=== PATIENT | female | born 1950 | race Caucasian/White ===

== ENCOUNTER → 2019-05-14 | Day surgery (SDC) | payer BC ==
[~2019-05-14] MED LIST: ACETAMINOPHEN 325 MG TABLET PO PRN; ALBUTEROL SULFATE 2.5 MG/3 ML NEBU. NEB PRN; ALPR0.5T PO; APIX5TAB3 PO; ASPI325T8 PO; ASPI81TA50 PO; ATROPINE 0.5 MG/5 ML DISP.SYRIN. IV PRN; CARV25TA2 PO; DOCU-109 PO; EZET10TA20 PO; FLUT9.9S NS; HYDR-2145 PO; HYDR25CA75 PO; IV RINGERS SOLUTION,LACTATED 1,000 ML IV SCH; LISI-338 PO; LISI1TAB20 PO; PANT20TA58 PO; PANT40TA3 PO; PHEN-444 PO; PHENOL ORAL SPRAY 177ML BOTTLE. MM PRN; POTA20TA4 PO; PROPOFOL 20 ML IV ONE; [UNRECOGNIZED DRUG - OTHER]; diphenhydrAMINE 50 MG/ML VIAL IV PRN
[2019-05-14 13:10] VITALS: BP 147/78
== END ==
LOC: SURG 10:49
PROVIDERS: ATTEND Internal Medicine Gastroenterology
DX: R13.10 Dysphagia, unspecified (principal); K22.2 Esophageal obstruction; K21.9 Gastro-esophageal reflux disease without esophagitis; K44.9 Diaphragmatic hernia without obstruction or gangrene; I48.91 Unspecified atrial fibrillation; F41.9 Anxiety disorder, unspecified; I10 Essential (primary) hypertension; Z85.048 Personal history of other malignant neoplasm of rectum, rectosigmoid junction, and anus
CPT/HCPCS: 43239; J2704; J7120

== ENCOUNTER 2020-03-19 11:27 | Emergency (ER) | payer BC ==
[~2020-03-19] VITALS: Ht 170.2 cm; Wt 94.0 kg
[~2020-03-19 11:27] MED LIST changes: -ACETAMINOPHEN 325 MG TABLET PO PRN; -ALBUTEROL SULFATE 2.5 MG/3 ML NEBU. NEB PRN; -ATROPINE 0.5 MG/5 ML DISP.SYRIN. IV PRN; -IV RINGERS SOLUTION,LACTATED 1,000 ML IV SCH; -PHENOL ORAL SPRAY 177ML BOTTLE. MM PRN; -PROPOFOL 20 ML IV ONE; -diphenhydrAMINE 50 MG/ML VIAL IV PRN
[2020-03-19] MEDS ORDERED: IV NORMAL SALINE 1,000ML 1,000 ML IV ONE (11:45)
[2020-03-19] MEDS ORDERED: dilTIAZem 25 MG/5 ML VIAL IVP ONE (11:45)
--- NOTE | 2020-03-19 11:45 | PHYS DOC ---
General Adult EDM: Chief Complaint: DIZZY/LIGHT HEADED HPI: HPI: History obtained from patient. Patient is a 69-year-old female with a history of atrial fibrillation, colon cancer who presents with multiple complaints. Patient states she has felt generally fatigued over the past 2 weeks. She notes that she began developing some vertiginous symptoms early this morning. She states that she was supposed to see her clinical manager home care today but informed her clinical manager home care that she would require a wheelchair to get into the office. Upon hearing this the clinical manager home care instructed her to report to the emergency department. She states that she checked her blood pressure at home this morning and noted to be approximately 80/60 therefore she did not take any of her home medications including her carvedilol or Eliquis. She is also noted black tarry stools over the past several days. Notes a history of colon cancer. Denies any syncope. Denies cough or fever. Does note some shortness of breath. Does endorse orthopnea. Denies chest pain or heaviness. Denies back pain. Does note some mild abdominal discomfort diffuse in nature in the mornings over the past week or 2. States that she has been eating less than normal. Denies known exposure to coronavirus. No other complaints. Review of Systems: Review of Systems: Constitutional: Positive for fatigue Eyes: Denies change in visual acuity HENT: Denies nasal congestion or sore throat Respiratory: Positive for shortness of breath Cardiovascular: Denies chest pain or edema GI: D positive for abdominal pain and melena : Denies dysuria Musculoskeletal: Denies back pain or joint pain Integument: Denies rash Neurologic: Denies headache, focal weakness or sensory changes Endocrine: Denies polyuria or polydipsia Lymphatic: Denies swollen glands Psychiatric: Denies depression or anxiety Allergies: Allergies: Allergies Coded Allergies Type Severity Reaction Last Updated Verified No Known Drug Allergies 02/03/15 No Physical Exam: PE: Constitutional: Well developed, well nourished, no acute distress, non-toxic appearance. [] HENT: Normocephalic, atraumatic, bilateral external ears normal, oropharynx moist, no oral exudates, nose normal. [] Eyes: PERRLA, EOMI, conjunctiva normal, no discharge. [] Neck: Normal range of motion, no tenderness, supple, no stridor. [] Cardiovascular: Tachycardic, irregular. No murmurs rubs or gallops noted. Lungs & Thorax: Bilateral breath sounds clear to auscultation [] Abdomen: soft, no tenderness, no masses, no pulsatile masses. [] : Grossly positive for melanotic stool. Skin: Warm, dry, no erythema, no rash. [] Back: No tenderness, no CVA tenderness. [] Extremities: No tenderness, no cyanosis, no clubbing, ROM intact, no edema. [] Neurologic: Alert and oriented X 3, normal motor function, normal sensory function, no focal deficits noted. [] Psychologic: Affect normal, judgement normal, mood normal. [] EKG: EKG: EKG consistent with atrial fibrillation with rapid ventricular response. Ventricular rate of [address] [place] [address] depression noted in the lateral precordial leads. No ST elevation appreciated. [] Radiology/Procedures: Radiology/Procedures: [address] [address] IMAGING REPORT Signed PATIENT: CALLIE BLAKE ACCOUNT: [id number] : 1950 LOCATION: ER AGE: 69 SEX: F EXAM STATUS: REG ER ORD. PHYSICIAN: MORE LACEY DO REASON: abdominal pain, melena. hx colon CA PROCEDURE: CT ABDOMEN PELVIS WO CONTRAST Examination: CT ABDOMEN+PELVIS WO History: abdominal pain, melena. hx colon CA Comparison/Correlation: 02/03/2015 CT abdomen and pelvis with contrast Findings: Axial images of the abdomen and pelvis were obtained following IV contrast. Sagittal and coronal reformatted images were provided. Visualized lung bases are clear. Marked fatty infiltration of the liver diffusely is present. Nodular contour of the liver compatible with cirrhosis or other fibrotic process is present. Spleen is unremarkable. Pancreas is normal. Adrenal glands are normal. Kidneys unremarkable. Retroaortic left renal vein noted. High density within the gallbladder probably representing sludge noted. No extraluminal gas. Borderline distended upper to mid abdominal small bowel loops. No definite bowel obstruction. The appendix is normal. Significant submucosal fat throughout the colon is nonspecific and may relate to previous inflammatory process. Urinary bladder is unremarkable. Marked calcific involvement of the infrarenal abdominal aorta is evident with diffuse small diameter. No aneurysm. No enlarged abdominal or pelvic lymph nodes. Multilevel disc space narrowing of the thoracic and lumbar spine is present. Concentric disc bulge throughout the lumbar spine from L2 to L5 is present. Impression: Marked fatty infiltration of the liver. Hepatic cirrhosis or a fibrotic process. No acute inflammatory process identified. Borderline distention of upper abdominal small bowel loops which may represent focal ileus. No conclusive findings for obstruction. Consider continued follow- up if obstruction is persistent concern. Diffuse calcific involvement and narrowing of the infrarenal abdominal aorta. Electronically signed by: Zacarias Hay MD (03/19/2020 1:27 PM) [id number] DICTATED AND SIGNED BY: ZACARIAS HAY MD DATE: 03/19/20 7970 CC: GINA FALLON MD; MORE LACEY DO ~MTH0 0 [] Heart Score: Risk Factors: Risk Factors: DM, Current or recent (<one month) smoker, HTN, HLP, family history of CAD, obesity. Risk Scores: Score 0 - 3: 2.5% MACE over next 6 weeks - Discharge Home Score 4 - 6: 20.3% MACE over next 6 weeks - Admit for Clinical Observation Score 7 - 10: 72.7% MACE over next 6 weeks - Early Invasive Strategies Course & Med Decision Making: Course & Med Decision Making Pertinent Labs and Imaging studies reviewed. (See chart for details) [] Patient is a 69-year-old female who presents with multiple complaints. Vital signs notable for tachycardia. Atrial fibrillation with rapid ventricular response present. She was given a one-time dose of 10 mg of IV Cardizem. This did improve her heart rate significantly. No infusion was initiated. Rectal exam grossly positive for melanotic stool. Labs are notable for hypokalemia and hypomagnesia. She also has slight hyperbilirubinemia with transaminitis. Likely due to her fatty liver. No signs of acute infectious etiology. CT imaging does reveal some findings concerning for potential ileus. Low suspicion for small bowel obstruction given she is currently having bowel movements. Low suspicion for mesenteric ischemia as the patient does not appear uncomfortable. Patient did have her potassium in the serum replacement initiated the emergency department. Fluids administered. Given patient's melanotic stool while taking blood thinner she may require GI evaluation. Given this she will be transferred to [facility] where GI specialty services are available. She has remained hemodynamically stable in the emergency department. Jaymie Disclaimer: Dragon Disclaimer: This electronic medical record was generated, in whole or in part, using a voice recognition dictation system. Departure Departure: Impression: Primary Impression: Atrial fibrillation with rapid ventricular response Additional Impressions: Hypomagnesemia Hypokalemia Transaminitis Hyperbilirubinemia Melena Disposition: 02 DC/TRF OTHER SHORT TERM HOS Condition: STABLE Referrals: GINA FALLON MD (PCP) Critical Care Time The patient had a high probability of sudden, clinically significant deterioration, which required the highest level of physician preparedness to intervene urgently. I managed life or organ supporting interventions that required frequent re-assessment throughout their stay in the emergency depar tment. The total critical care time spent managing their case, separate from other billable procedures, was 20 minutes. MORE LACEY DO Mar 19, 2020 11:45
[2020-03-19] MEDS ORDERED: dilTIAZem VIAL 125 MG in IV NORMAL SALINE 100ML 100 ML IV PRN (12:00)
[2020-03-19] MEDS ORDERED: IOHEXOL 300 MG/ML 75 ML VIAL. IV ONE (12:00)
--- NOTE | 2020-03-19 12:02 | RAD ---
Examination: XR CHEST 1V History: Reason: SOB / Spl. Instructions: / History: Comparison/Correlation: 06/19/2015 Findings: Portable frontal view of the chest was obtained. Heart size normal. Pulmonary vasculature is unremarkable. No pneumothorax. No definite infiltrate or effusion. Bony structures unremarkable. Impression: No suspicious process. Electronically signed by: Zacarias Farrell MD (03/19/2020 12:00 PM) [id number]
[2020-03-19 12:15] LABS: BASO # 0.1 x10^3/uL (0.0-0.2); BASO % 1 % (0-3); EOS % 1 % (0-3); HEMATOCRIT 34.1 % (36.0-47.0); HEMOGLOBIN 11.3 g/dL (12.0-15.5); LYMPH # 0.5 x10^3/uL (1.0-4.8); LYMPH % 7 % (24-48); MEAN CORPUSCULAR HEMOGLOBIN 35 pg (25-35); MEAN CORPUSCULAR HGB CONC 33 g/dL (31-37); MEAN CORPUSCULAR VOLUME 107 fL (79-100); MONO # 0.9 x10^3/uL (0.0-1.1); MONO % 12 % (0-9); NEUT % 80 % (31-73); PLATELET COUNT 146 x10^3/uL (140-400); RED BLOOD COUNT 3.19 x10^6/uL (3.50-5.40); RED CELL DISTRIBUTION WIDTH 14.1 % (11.5-14.5); WHITE BLOOD COUNT 7.4 x10^3/uL (4.0-11.0)
[2020-03-19 12:22] LABS: FECAL OB PT POSITIVE (NEG)
[2020-03-19 12:27] LABS: ALBUMIN 3.1 g/dL (3.4-5.0); ALBUMIN/GLOBULIN RATIO 0.8 (1.0-1.7); CALCIUM 7.8 mg/dL (8.5-10.1); CREATININE 1.4 mg/dL (0.6-1.0); GFR 37.4; TOTAL BILIRUBIN 3.1 mg/dL (0.2-1.0); TOTAL PROTEIN 6.8 g/dL (6.4-8.2)
[2020-03-19 12:29] LABS: POTASSIUM 2.5 mmol/L (3.5-5.1)
[2020-03-19] MEDS ORDERED: MAGNESIUM SULFATE 2GM 50 ML IV ONE (12:45)
[2020-03-19] MEDS ORDERED: POTASSIUM CHLORIDE 10MEQ 100 ML IV SCH (12:45)
[2020-03-19 12:49] LABS: BACTERIA,URINE MANY /HPF (0-FEW); BILIRUBIN,URINE LARGE (NEG); CLARITY,URINE CLOUDY; COLOR,URINE AMBER; GLUCOSE,URINE NEG (NEG); NITRITE,URINE POS (NEG); SQUAMOUS EPITHELIAL CELL,UR MOD /LPF
--- NOTE | 2020-03-19 13:30 | RAD ---
Examination: CT ABDOMEN+PELVIS WO History: abdominal pain, melena. hx colon CA Comparison/Correlation: 02/03/2015 CT abdomen and pelvis with contrast Findings: Axial images of the abdomen and pelvis were obtained following IV contrast. Sagittal and co nir reformatted images were provided. Visualized lung bases are clear. Marked fatty infiltration of the liver diffusely is present. Nodular contour of the liver compatible with cirrhosis or other fibrotic process is present. Spleen is unrem arkable. Pancreas is normal. Adrenal glands are normal. Kidneys unremarkable. Retroaortic left renal vein noted. High density within the gallbladder probably representing sludge noted. No extraluminal g as. Borderline distended upper to mid abdominal small bowel loops. No definite bowel obstruction. The mauro endix is normal. Significant submucosal fat throughout the colon is nonspecific and may relate to pre vious inflammatory process. Urinary bladder is unremarkable. Marked calcific involvement of the infrarenal abdominal aorta is evident with diffuse small diameter. No aneurysm. No enlarged abdominal or pelvic lymph nodes. Multilevel disc space narrowing of the thoracic and lumbar spine is present. Concentric disc bulge th roughout the lumbar spine from L2 to L5 is present. Impression: Marked fatty infiltration of the liver. Hepatic cirrhosis or a fibrotic process. No acute inflammatory process identified. Borderline distention of upper abdominal small bowel loops which may represent focal ileus. No conclu sive findings for obstruction. Consider continued follow-up if obstruction is persistent concern. Diffuse calcific involvement and narrowing of the infrarenal abdominal aorta. Electronically signed by: Zacarias Farrell MD (03/19/2020 1:27 PM) [id number]
--- NOTE | 2020-03-19 14:31 | EKG ---
[address] [address] Test Date: 2020-03-19 Test Time: 11:33:23 Pat Name: CALLIE BLAKE Department: Room: Gender: F Marker Hand: : 1950 Requested By: MORE LACEY Order Number: [id number] Reading MD: Measurements Intervals [place] Rate: 135 P: [place]: QRS: 20 QRSD: 102 T: 267 QT: 322 QTc: 488 Interpretive Statements IRREGULAR RHYTHM, NO P-WAVE FOUND ST & T ABNORMALITY, CONSIDER ANTERIOR ISCHEMIA OR LEFT VENTRICULAR STRAIN LATERAL ISCHEMIA OR LEFT VENTRICULAR STRAIN INFEROLATERAL ISCHEMIA OR LEFT VENTRICULAR STRAIN ABNORMAL ECG RI6.02 No previous ECG available for comparison
[2020-03-19 15:21] VITALS: BP 105/59
--- NOTE | 2020-03-23 11:32 | NUR ---
IP: notified IP at [facility] of COVID result.
== END 2020-03-19 17:31 | disposition short-term general hospital (02) ==
LOC: ER 11:27
DX: I48.20 Chronic atrial fibrillation, unspecified (principal); Z20.828 Contact with and (suspected) exposure to other viral communicable diseases; R06.02 Shortness of breath; R10.9 Unspecified abdominal pain; E83.42 Hypomagnesemia; E80.6 Other disorders of bilirubin metabolism; E87.6 Hypokalemia; R74.01 Elevation of levels of liver transaminase levels; K92.1 Melena; Z85.9 Personal history of malignant neoplasm, unspecified
CPT/HCPCS: 36415; 71045; 74176; 80053; 81001; 82274; 83735; 83880; 84484; 85025; 85610; 86850; 86900; 86901; 87086; 93005; 96361; 96365; 96366; 96368; 96375; 99285; J3475; J3480; J3490; J7030; U0003

== ENCOUNTER 2020-09-19 19:55 | Emergency (ER) | payer BC ==
[~2020-09-19] VITALS: Ht 170.2 cm; Wt 94.0 kg
[~2020-09-19 19:55] MED LIST changes: -LISI-338 PO; +LISI-517 PO
--- NOTE | 2020-09-19 21:24 | PHYS DOC ---
Past History Past Medical History: A-Fib, Alcoholism, Hypertension, UTI Past Surgical History: No Surgical History Alcohol Use: Heavy General Adult EDM: Chief Complaint: GI PROBLEM HPI: HPI: "...I ve been having black stools for past couple days.. and I did vomit up some coffee ground stuff.. I am on Aspirin and Eliquis for my A. fib... Patient is a 69 year old female who presents with above hx and complaints of GI bleeding which appears to be upper by hx. patient has been having tarry stools last couple days. Now has vomited coffee-ground emesis. Patient has significant past medical history of A. fib with rapid ventricular response episodes, hypomagnesium, hypokalemia, pancreatitis, hyperbilirubinemia, GI bleeds, and alcohol abuse. Patient has been on Eliquis for her A. fib. Patient denies any recent travel. Patient denies specific ill contacts. Patient has had some increased dizziness today. Pt. follows with Dr. Fallon. Review of Systems: Review of Systems: Constitutional: Denies fever or chills Eyes: Denies change in visual acuity HENT: Denies nasal congestion or sore throat Respiratory: Denies cough or shortness of breath Cardiovascular: Denies chest pain or edema GI: Complains of nausea, vomiting, and tarry diarrhea stools : Denies dysuria Musculoskeletal: Denies back pain or joint pain. Complains of weakness Integument: Denies rash Neurologic: Denies headache, focal weakness or sensory changes. Complains of dizziness Endocrine: Denies polyuria or polydipsia Lymphatic: Denies swollen glands Psychiatric: Denies depression or anxiety Family History: Family History: Noncontributory to presentation Current Medications: Current Meds: See nursing for home meds Allergies: Allergies: Allergies Coded Allergies Type Severity Reaction Last Updated Verified No Known Drug Allergies 02/03/15 No Physical Exam: PE: Constitutional: Moderate acute distress, non-toxic appearance. [] HENT: Normocephalic, atraumatic, bilateral external ears normal, oropharynx moist, no oral exudates, nose normal. [] Eyes: PERRLA, EOMI, conjunctiva pale, no discharge. [] Neck: Normal range of motion, no tenderness, supple, no stridor. [] Cardiovascular: Tachycardia heart rate regular rhythm, no murmur []. PMI to the left. Bedside monitor shows a sinus rhythm Lungs & Thorax: Bilateral breath sounds equal apex with scattered wheezes and some basilar crackles on auscultation [] Abdomen: Bowel sounds hyperactive,, soft, epigastric tenderness, no masses, no pulsatile masses. Liver edge. (-NG placed with return of coffee-ground obvious GI blood). Rectal. Gross Black tarry stools. Skin: Warm, dry, no erythema, no rash. Poor turgor. Pale. Back: No tenderness, no CVA tenderness. [] Extremities: No tenderness, no cyanosis, no clubbing, ROM intact, no edema. Arthritic changes. No cording. Neurologic: Alert and oriented X 3, moves extremities on request, does have distal sensory, no focal deficits noted. [] Psychologic: Affect anxious, judgement normal, mood normal. [] EKG: EKG: My interpretation EKG shows a sinus rhythm at 92 bpm. Slightly prolonged QT at 388 ms. QTC is 485 ms. No findings acute STEMI of contralateral changes. [] Radiology/Procedures: Radiology/Procedures: [place] [address] IMAGING REPORT Signed PATIENT: CALLIE BLAKE ACCOUNT: [id number] : 1950 LOCATION: ER AGE: 69 SEX: F EXAM STATUS: REG ER ORD. PHYSICIAN: ROSALIA FAUSTIN MD REASON: GI bled... pain PROCEDURE: ACUTE ABDOMEN SERIES Exam: Acute abdominal series INDICATION: GI bleed TECHNIQUE: Acute abdominal series Comparisons: Frontal view of the chest with upright and supine views the abdomen FINDINGS: The cardiomediastinal silhouette and pulmonary vessels are within normal limits. The lung and pleural spaces are clear. Air and stool are noted throughout the colon to level the rectum in a nonobstructive bowel gas pattern. No suspicious masses or calcifications. Visualized osseous structures are unremarkable. IMPRESSION: 1. No acute cardiopulmonary process. 2. Nonobstructive bowel gas pattern. Electronically signed by: Latisha Rowe MD (09/19/2020 10:05 PM) [facility] DICTATED AND SIGNED BY: LATISHA ROWE MD DATE: 09/19/202203 CC: GINA FALLON MD; ROSALIA FAUSTIN MD ~MTH0 0 [][place] [address] IMAGING REPORT Signed PATIENT: CALLIE BLAKE ACCOUNT: [id number] : 1950 LOCATION: ER AGE: 69 SEX: F EXAM STATUS: REG ER ORD. PHYSICIAN: ROSALIA FAUSTIN MD REASON: post ng PROCEDURE: KUB Exam: Abdomen one view INDICATION: Post NG TECHNIQUE: Frontal view of the abdomen Comparisons: None FINDINGS: Enteric tube with tip coiled in the left upper quadrant likely within the stomach. Visual is bowel gas pattern is nonobstructive. IMPRESSION: Enteric tube with tip and sidehole likely in the stomach. Electronically signed by: Latisha Rowe MD (09/19/2020 11:10 PM) [facility] DICTATED AND SIGNED BY: LATISHA ROWE MD DATE: 09/19/202309 CC: GINA FALLON MD; ROSALIA FAUSTIN MD ~MTH0 0 Heart Score: C/O Chest Pain: N/A Risk Factors: Risk Factors: DM, Current or recent (<one month) smoker, HTN, HLP, family history of CAD, obesity. Risk Scores: Score 0 - 3: 2.5% MACE over next 6 weeks - Discharge Home Score 4 - 6: 20.3% MACE over next 6 weeks - Admit for Clinical Observation Score 7 - 10: 72.7% MACE over next 6 weeks - Early Invasive Strategies Course & Med Decision Making: Course & Med Decision Making Pertinent Labs and Imaging studies reviewed. (See chart for details) Discussed presentation, testing and treatment plan with -transfer to [facility] for possible GI consult upper GI bleed Critical care 90 minutes Impression: 1. Acute upper GI bleed on Eliquis 2. History of A. fib 3. Thrombocytopenia 102 4. Elevated LFTs AST 124 ALT 127 5. Elevated ketones 160 6. Alcohol abuse-152 [] Dragon Disclaimer: Dragon Disclaimer: This electronic medical record was generated, in whole or in part, using a voice recognition dictation system. Departure Departure: Referrals: GINA FALLON MD (PCP) Jaymie Disclaimer This chart was dictated in whole or in part using Voice Recognition software in a busy, high-work load, and often noisy Emergency Department environment. It may contain unintended and wholly unrecognized errors or omissions. ROSALIA FAUSTIN MD Sep 19, 2020 21:24
[2020-09-19] MEDS ORDERED: ACETAMINOPHEN 500 MG TABLET PO ONE (22:00)
[2020-09-19] MEDS ORDERED: IV RINGERS SOLUTION,LACTATED 1,000 ML IV SCH (22:00)
[2020-09-19] MEDS ORDERED: ONDANSETRON PF 4 MG/2 ML VIAL. IVP ONE (22:00)
[2020-09-19] MEDS ORDERED: diphenhydrAMINE 50 MG/ML VIAL IV ONE (22:00)
[2020-09-19] MEDS ORDERED: FAMOTIDINE 20 MG/2 ML VIAL IVP ONE (22:00)
[2020-09-19 22:02] LABS: BARBITURATES NEG (NEG); BENZODIAZEPINES NEG (NEG); CANNABINOIDS NEG (NEG); COCAINE NEG (NEG); METHADONE NEG (NEG); OPIATES NEG (NEG); PHENCYCLIDINE NEG (NEG)
[2020-09-19 22:08] LABS: BASO # 0.1 x10^3/uL (0.0-0.2); BASO % 1 % (0-3); EOS % 0 % (0-3); HEMATOCRIT 36.5 % (36.0-47.0); HEMOGLOBIN 12.4 g/dL (12.0-15.5); LYMPH # 1.3 x10^3/uL (1.0-4.8); LYMPH % 21 % (24-48); MEAN CORPUSCULAR HEMOGLOBIN 35 pg (25-35); MEAN CORPUSCULAR HGB CONC 34 g/dL (31-37); MEAN CORPUSCULAR VOLUME 102 fL (79-100); MONO # 0.6 x10^3/uL (0.0-1.1); MONO % 9 % (0-9); NEUT # 4.1 x10^3uL (1.8-7.7); NEUT % 68 % (31-73); PLATELET COUNT 103 x10^3/uL (140-400); RED BLOOD COUNT 3.58 x10^6/uL (3.50-5.40); RED CELL DISTRIBUTION WIDTH 15.7 % (11.5-14.5)
--- NOTE | 2020-09-19 22:08 | RAD ---
Exam: Acute abdominal series INDICATION: GI bleed TECHNIQUE: Acute abdominal series Comparisons: Frontal view of the chest with upright and supine views the abdomen FINDINGS: The cardiomediastinal silhouette and pulmonary vessels are within normal limits. The lung and pleural spaces are clear. Air and stool are noted throughout the colon to level the rectum in a nonobstructive bowel gas patter n. No suspicious masses or calcifications. Visualized osseous structures are unremarkable. IMPRESSION: 1. No acute cardiopulmonary process. 2. Nonobstructive bowel gas pattern. Electronically signed by: Latisha Esposito MD (09/19/2020 10:05 PM) [facility] [place]
[2020-09-19 22:09] LABS: AMPHETAMINE/METHAMPHETAMINE NEG (NEG)
[2020-09-19 22:14] LABS: CALCIUM 8.6 mg/dL (8.5-10.1); CREATININE 0.5 mg/dL (0.6-1.0); GFR 122.7; POTASSIUM 4.6 mmol/L (3.5-5.1)
[2020-09-19 22:14] LABS: BILIRUBIN,URINE SMALL (NEG); CLARITY,URINE CLEAR; COLOR,URINE YELLOW; GLUCOSE,URINE NEG (NEG)
[2020-09-19 22:15] LABS: NITRITE,URINE NEG (NEG); UROBILINOGEN,URINE 0.2 mg/dL (0.2 mg/dL)
[2020-09-19 22:16] LABS: BACTERIA,URINE 0 /HPF (0-FEW); SQUAMOUS EPITHELIAL CELL,UR FEW /LPF; WBC,URINE RARE /HPF (0-4)
[2020-09-19 22:21] LABS: ALBUMIN 3.5 g/dL (3.4-5.0); DIRECT BILIRUBIN 0.2 mg/dL (0.0-0.2); TOTAL BILIRUBIN 0.8 mg/dL (0.2-1.0); TOTAL PROTEIN 7.1 g/dL (6.4-8.2)
--- NOTE | 2020-09-19 22:47 | EKG ---
[address] [address] Test Date: 2020-09-19 Test Time: 21:47:13 Pat Name: CALLIE BLAKE Department: Room: Gender: F Line Haul Owner Operator: : 1950 Requested By: ROSALIA FAUSTIN Order Number: [id number] Reading MD: Measurements Intervals [place] Rate: 92 P: 4 FL: 166 QRS: 9 QRSD: 92 T: 28 QT: 388 QTc: 485 Interpretive Statements SINUS RHYTHM PROLONGED QT NO SPECIFIC ECG ABNORMALITIES RI6.02 No previous ECG available for comparison
--- NOTE | 2020-09-19 23:13 | RAD ---
Exam: Abdomen one view INDICATION: Post NG TECHNIQUE: Frontal view of the abdomen Comparisons: None FINDINGS: Enteric tube with tip coiled in the left upper quadrant likely within the stomach. Visual is bowel gas pattern is nonobstructive. IMPRESSION: Enteric tube with tip and sidehole likely in the stomach. Electronically signed by: Latisha Esposito MD (09/19/2020 11:10 PM) [facility]
[2020-09-19] MEDS ORDERED: folic acid (23:43)
[2020-09-19] MEDS ORDERED: ASPI-630 PO (23:43)
[2020-09-19] MEDS ORDERED: MAGN250T10 PO (23:43)
[2020-09-19] MEDS ORDERED: METO-239 PO (23:43)
[2020-09-19] MEDS ORDERED: LISI2.5T PO (23:43)
[2020-09-19] MEDS ORDERED: THIA100T57 PO (23:43)
[2020-09-19] MEDS ORDERED: FURO-69 PO (23:43)
[2020-09-19 23:45] VITALS: BP 128/70
== END 2020-09-20 00:04 | disposition short-term general hospital (02) ==
LOC: ER 19:55
DX: K92.1 Melena (principal)
CPT/HCPCS: 36415; 74018; 74022; 80048; 80076; 80307; 81001; 82550; 83690; 84484; 85025; 86850; 86900; 86901; 93005; 96361; 96374; 96375; 99285; G0480; J1200; J2405; J3490; J7120

== ENCOUNTER 2021-01-25 12:47 | Inpatient (IN) | payer MEDICARE, BC ==
[~2021-01-25] VITALS: Ht 170.2 cm; Wt 84.6 kg
[~2021-01-25 12:47] MED LIST changes: +ASPI-630 PO; +FURO-69 PO; -LISI-517 PO; -LISI1TAB20 PO; +LISI1TAB39 PO; +LISI2.5T12 PO; +LISI5TAB15 PO; +MAGN250T10 PO; +METO-239 PO; +THIA100T57 PO; +folic acid
--- NOTE | 2021-01-25 12:53 | PHYS DOC ---
Past History Past Medical History: A-Fib, Alcoholism, Hypertension, UTI Past Surgical History: Hysterectomy, Other Additional Past Surgical Histo: ankle repair after fx Alcohol Use: Heavy Adult General Chief Complaint Chief Complaint: SHORTNESS OF BREATH HPI HPI Patient is a 70-year-old female presenting via EMS for shortness of breath. Reports she has had nonspecific upper respiratory symptoms for past x1 week with associated decreased appetite and overall p.o. intake. Nothing known makes herself feel better, physical exertion makes herself feel worse. Reports generalized fatigue but no focal pain. Timing of symptoms has been constant since onset. She denies any fever but does admit subjective chills, headache, rhinorrhea, postnasal drip, dry nonproductive cough, feelings of shortness of breath and wheezing. She does admit to urinary symptoms that developed 48 hours prior stating her urine has been more concentrated and smelly than usual. She has not been vaccinated against COVID-19. She currently takes Eliquis for atrial fibrillation. Also admits ongoing alcohol abuse history, states she has "4 or so" drinks of hard liquor nightly. Last drink was reportedly yesterday evening, admits she has been more shaky on her feet and has almost fallen twice at home today, reports she is fearful of returning home and current state Review of Systems Review of Systems Fourteen body systems of review of systems have been reviewed. See HPI for pertinent positives and negative responses, other link all other systems are negative, non-pertinent or non-contributory Allergies Allergies Allergies Coded Allergies Type Severity Reaction Last Updated Verified No Known Drug Allergies 02/03/15 No Physical Exam Physical Exam Constitutional: Well developed, age-appropriate, obese, no acute distress, non- toxic appearance. HENT: Normocephalic, atraumatic, bilateral external ears normal, oropharynx moist, no oral exudates, nose normal. Eyes: PERRLA, EOMI, conjunctiva normal, no discharge. Neck: Normal range of motion, no tenderness, supple, no stridor. Cardiovascular: Heart rate regular, irregular rhythm, no murmurs rubs or gallops Lungs & Thorax: No overt respiratory distress or accessory muscle use but there is increased work of breathing, no gross abnormalities during auscultation bilaterally Abdomen: Bowel sounds normal, soft, no tenderness, no masses, no pulsatile masses. Nonsurgical abdomen, no peritoneal signs Skin: Warm, dry, no erythema, no rash. Back: No tenderness, no CVA tenderness. Extremities: No tenderness, no cyanosis, no clubbing, ROM intact, no edema. Neurologic: Alert and oriented X 3, cranial nerves II through XII intact, normal motor & sensory function, no focal deficits noted. Psychologic: Anxious affect and mood Current Patient Data Vital Signs Vital Signs Date Time Temp Pulse Resp B/P (MAP) Pulse Ox O2 Delivery O2 Flow Rate FiO2 01/25/21 12:49 98.6 94 16 125/72 (89) 99 Room Air Vital Signs Date Time Temp Pulse Resp B/P (MAP) Pulse Ox O2 Delivery O2 Flow Rate FiO2 01/25/21 12:49 98.6 94 16 125/72 (89) 99 Room Air Lab Results Laboratory Tests Test 01/25/21 13:34 01/25/21 14:53 01/25/21 15:29 White Blood Count 7.1 x10^3/uL Red Blood Count 3.42 x10^6/uL Hemoglobin 12.5 g/dL Hematocrit 37.5 % Mean Corpuscular Volume 110 fL Mean Corpuscular Hemoglobin 37 pg Mean Corpuscular Hemoglobin Concent 33 g/dL Red Cell Distribution Width 14.7 % Platelet Count 101 x10^3/uL Neutrophils (%) (Auto) 84 % Lymphocytes (%) (Auto) 6 % Monocytes (%) (Auto) 10 % Eosinophils (%) (Auto) 0 % Basophils (%) (Auto) 0 % Neutrophils # (Auto) 6.0 x10^3uL Lymphocytes # (Auto) 0.4 x10^3/uL Monocytes # (Auto) 0.7 x10^3/uL Eosinophils # (Auto) 0.0 x10^3/uL Basophils # (Auto) 0.0 x10^3/uL Sodium Level 137 mmol/L Potassium Level 3.3 mmol/L Chloride Level 96 mmol/L Carbon Dioxide Level 13 mmol/L Anion Gap 28 Blood Urea Nitrogen 12 mg/dL Creatinine 0.7 mg/dL Estimated GFR (Cockcroft-Gault) 83.0 BUN/Creatinine Ratio 17 Glucose Level 102 mg/dL Lactic Acid Level 1.6 mmol/L Calcium Level 8.2 mg/dL Total Bilirubin 4.1 mg/dL Aspartate Amino Transf (AST/SGOT) 236 U/L Alanine Aminotransferase (ALT/SGPT) 189 U/L Alkaline Phosphatase 97 U/L Troponin I Quantitative < 0.017 ng/mL BM-Weg-L-Type Natriuretic Peptide 2794 pg/mL Total Protein 7.0 g/dL Albumin 3.2 g/dL Albumin/Globulin Ratio 0.8 Urine Collection Type Unknown Urine Color Yellow Urine Clarity Hazy Urine pH 6.0 Urine Specific [place] 1.025 Urine Protein 100 mg/dl Urine Glucose (UA) Neg mg/dL Urine Ketones (Stick) >=160 mg/dL Urine Blood Mod Urine Nitrite Pos Urine Bilirubin Mod Urine Urobilinogen Dipstick 4.0 mg/dL Urine Leukocyte Esterase Trace Urine RBC 6-10 /HPF Urine WBC 1-4 /HPF Urine Squamous Epithelial Cells Mod /LPF Urine Bacteria Few /HPF Ethyl Alcohol Level < 10 mg/dL Urine Opiates Screen Neg Urine Methadone Screen Neg Urine Barbiturates Neg Urine Phencyclidine Screen Neg Urine Amphetamine/Methamphetamine Neg Urine Benzodiazepines Screen Neg Urine Cocaine Screen Neg Urine Cannabinoids Screen Neg Urine Ethyl Alcohol Neg Current Medications Medications (Trade) Dose Ordered Sig/Cas Route PRN Reason Start Time Stop Time Status Last Admin Dose Admin Sodium Chloride 1,000 ml @ 1,000 mls/hr 1X ONCE IV 01/25/21 13:00 01/25/21 13:59 DC 01/25/21 13:00 Aspirin (Aspirin Chewable) 162 mg 1X ONCE PO 01/25/21 13:00 01/25/21 13:03 DC Lorazepam (Ativan Inj) 1 mg 1X ONCE IVP 01/25/21 15:30 01/25/21 15:31 DC Acetaminophen (Tylenol) 650 mg PRN Q4HRS PRN PO FEVER > 100.3'F 01/25/21 15:30 01/26/21 15:29 Nitroglycerin (Nitrostat) 0.4 mg PRN Q5MIN PRN SL CHEST PAIN 01/25/21 15:30 01/26/21 15:29 Thiamine HCl 100 mg/Sodium Chloride 51 ml @ 102 mls/hr DAILY IV 01/26/21 09:00 Folic Acid (Folic Acid) 1 mg 1X ONCE PO 01/25/21 15:30 01/25/21 15:31 DC Lorazepam (Ativan Inj) 2 mg PRN Q1HR PRN IV For CIWA 8-14 01/25/21 15:30 Lorazepam (Ativan Inj) 4 mg PRN Q1HR PRN IV For CIWA 15 or greater 01/25/21 15:30 EKG EKG EKG ordered and interpreted by myself at 1322 hrs. as sinus rhythm at 91 bpm, QTC 586 otherwise unremarkable intervals, left axis deviation, no STEMI Radiology/Procedures Radiology/Procedures Single view of the chest. 01/25/2021 1:12 PM Indication: Reason: shob / Spl. Instructions: / History: Comparison: Chest radiograph March 19, 2020 Findings: There is no focal consolidation. There is no pleural effusion or pneumothorax. Heart size is normal. Aortic calcification is similar. A No acute osseous abnormalities are seen. Impression: No evidence of acute cardiopulmonary process. Electronically signed by: Jassi Persaud MD (01/25/2021 1:23 PM) [id number] Heart Score C/O Chest Pain: No HEART Score for Chest Pain: HEART Score for Chest Pain Response (Comments) Value History Slighlty/Non-Suspicious 0 ECG Normal 0 Age > 65 2 Risk Factors >3 Risk Factors or Hx CAD 2 Troponin < Normal Limit 0 Total 4 Risk Factors: Risk Factors: DM, Current or recent (<one month) smoker, HTN, HLP, family history of CAD, obesity. Risk Scores: Risk Factors: DM, Current or recent (<one month) smoker, HTN, HLP, family history of CAD, obesity. Course & Med Decision Making Course & Med Decision Making ABCs unremarkable HPI physical exam and comprehensive ER work-up concerning for UTI that was treated with 1 g IV Rocephin. Patient also exhibiting early signs of alcohol withdrawals and so 0.5 mg IV Ativan administered. Unvaccinated individual with generalized fatigue with Covid swab pending Attempts were made to ambulate patient but she was unsteady on her feet, patient unable to safely ambulate and care for self at home. Patient continued medical does not have regular care at home to assist through personal deficits. Unsafe to disposition home; at minimum plan admission for continued medical treatment of patient's UTI and alcohol withdrawals Dragon Disclaimer Dragon Disclaimer This electronic medical record was generated, in whole or in part, using a voice recognition dictation system. Departure Departure: Impression: Primary Impression: Person under investigation for COVID-19 Additional Impressions: EtOH dependence UTI (urinary tract infection) Disposition: ADMITTED INPATIENT Admitting Physician: Gina De Los Santos Condition: STABLE Referrals: GINA DE LOS SANTOS MD (PCP) Problem Qualifiers PEY[place]BROCK Jan 25, 2021 12:53
[2021-01-25] MEDS ORDERED: ASPIRIN CHEWABLE 81 MG TABLET. PO ONE (13:00)
[2021-01-25] MEDS ORDERED: IV NORMAL SALINE 1,000ML 1,000 ML IV ONE (13:00)
--- NOTE | 2021-01-25 13:24 | EKG ---
[address] [address] Test Date: 2021-01-25 Test Time: 13:16:28 Pat Name: CALLIE BLAKE Department: Room: Gender: F Nut Sifter: BETSY : 1950 Requested By: BROCK TODD Order Number: [id number] Reading MD: Delio Gastelum Measurements Intervals Trout Rate: 91 P: 9 HI: 166 QRS: -7 QRSD: 96 T: 41 QT: 410 QTc: 506 Interpretive Statements SINUS RHYTHM LEFTWARD AXIS PROLONGED QT Electronically Signed On 01-25-2021 14:32:44 CDT by Delio Gastelum
--- NOTE | 2021-01-25 13:25 | RAD ---
Single view of the chest. 01/25/2021 1:12 PM Indication: Reason: shob / Spl. Instructions: / History: Comparison: Chest radiograph March 19, 2020 Findings: There is no focal consolidation. There is no pleural effusion or pneumothorax. Heart size i s normal. Aortic calcification is similar. A No acute osseous abnormalities are seen. Impression: No evidence of acute cardiopulmonary process. Electronically signed by: Jassi Persaud MD (01/25/2021 1:23 PM) [id number]
[2021-01-25 13:52] LABS: BASO % 0 % (0-3); EOS % 0 % (0-3); HEMATOCRIT 37.5 % (36.0-47.0); HEMOGLOBIN 12.5 g/dL (12.0-15.5); LYMPH # 0.4 x10^3/uL (1.0-4.8); LYMPH % 6 % (24-48); MEAN CORPUSCULAR HEMOGLOBIN 37 pg (25-35); MEAN CORPUSCULAR HGB CONC 33 g/dL (31-37); MEAN CORPUSCULAR VOLUME 110 fL (79-100); MONO # 0.7 x10^3/uL (0.0-1.1); MONO % 10 % (0-9); NEUT % 84 % (31-73); PLATELET COUNT 101 x10^3/uL (140-400); RED BLOOD COUNT 3.42 x10^6/uL (3.50-5.40); RED CELL DISTRIBUTION WIDTH 14.7 % (11.5-14.5); WHITE BLOOD COUNT 7.1 x10^3/uL (4.0-11.0)
[2021-01-25 14:00] LABS: CALCIUM 8.2 mg/dL (8.5-10.1); CREATININE 0.7 mg/dL (0.6-1.0); POTASSIUM 3.3 mmol/L (3.5-5.1)
[2021-01-25 14:12] LABS: ALBUMIN 3.2 g/dL (3.4-5.0); ALBUMIN/GLOBULIN RATIO 0.8 (1.0-1.7); TOTAL BILIRUBIN 4.1 mg/dL (0.2-1.0)
[2021-01-25] MEDS ORDERED: ACETAMINOPHEN 325 MG TABLET PO PRN (15:30)
[2021-01-25] MEDS ORDERED: NITROGLYCERIN SUBLINGUAL 0.4 MG BOTTLE OF 25. SL PRN (15:30)
[2021-01-25] MEDS ORDERED: FOLIC ACID 1 MG TABLET PO ONE ×2 (15:30→20:15)
[2021-01-25 15:40] LABS: BARBITURATES NEG (NEG); BENZODIAZEPINES NEG (NEG); CANNABINOIDS NEG (NEG); COCAINE NEG (NEG); METHADONE NEG (NEG); OPIATES NEG (NEG); PHENCYCLIDINE NEG (NEG)
[2021-01-25 15:41] LABS: AMPHETAMINE/METHAMPHETAMINE NEG (NEG)
[2021-01-25 15:47] LABS: BACTERIA,URINE FEW /HPF (0-FEW); BILIRUBIN,URINE MOD (NEG); CLARITY,URINE HAZY; COLOR,URINE YELLOW; GLUCOSE,URINE NEG (NEG); NITRITE,URINE POS (NEG); SQUAMOUS EPITHELIAL CELL,UR MOD /LPF
[2021-01-25] MEDS ORDERED: IV NORMAL SALINE 100ML 100 ML ONE (17:07)
[2021-01-25 18:29] VITALS: BP 110/76
[2021-01-25] MEDS ORDERED: AZITHROMYCIN 250 MG TABLET. PO ONE (18:45)
[2021-01-25] MEDS: APIXABAN 5 MG TABLET. PO SCH (22:07)
[2021-01-25] MEDS: ALPRAZolam 0.5 MG TABLET PO SCH (22:07)
[2021-01-25] MEDS: MAGNESIUM OXIDE 400 MG TABLET PO SCH (22:07)
[2021-01-25] MEDS: METOPROLOL SUCC 24HR ER 25 MG TAB.ER.24H. PO SCH (22:07)
[2021-01-25 22:21] VITALS: BP 120/80
--- NOTE | 2021-01-26 01:16 | NUR ---
The patient, CALLIE BLAKE, 70 y/o, F admitted by GINA FALLON MD, was given written information regarding hospital policies, unit procedures and contact persons. Valuables were checked and vital signs obtained. Previous RN had reviewed PT's PMH, PSH, SH, FH and medications. Medications had been reconciled. PT oriented to unit. PT with complaints of blood in stool. PT with noted blood in bedside commode bucket after urination. PT states she has a hemorrhoid, prior rectal CA history. PT is on Eliquis. PT with maceration and erythema noted to bilateral buttocks and cleft area. Erythema also noted to labia majora and mons pubis. Barrier cream applied after cleansing.
[2021-01-26 06:23] LABS: ALBUMIN 2.3 g/dL (3.4-5.0); ALBUMIN/GLOBULIN RATIO 0.6 (1.0-1.7); CALCIUM 7.5 mg/dL (8.5-10.1); CREATININE 0.6 mg/dL (0.6-1.0); GFR 99.1; POTASSIUM 3.9 mmol/L (3.5-5.1); TOTAL BILIRUBIN 2.2 mg/dL (0.2-1.0); TOTAL PROTEIN 6.3 g/dL (6.4-8.2)
[2021-01-26 06:27] VITALS: BP 104/70
[2021-01-26] MEDS: AZITHROMYCIN 250 MG TABLET. PO SCH (07:54)
[2021-01-26] MEDS: PANTOPRAZOLE 40 MG TABLET. PO SCH (07:54)
[2021-01-26] MEDS: FLUTICASONE 50MCG/NASAL SPRAY 16GM BOTTLE. NS SCH (07:54)
[2021-01-26] MEDS: THIAMINE 100 MG TABLET. PO SCH (07:54)
[2021-01-26] MEDS: POTASSIUM CHLORIDE 20 MEQ TABLET.ER. PO SCH (07:55)
[2021-01-26] MEDS: ALPRAZolam 0.5 MG TABLET PO SCH ×3 (07:55→20:13)
[2021-01-26] MEDS: EZETIMIBE 10 MG TABLET PO SCH (07:55)
[2021-01-26] MEDS: APIXABAN 5 MG TABLET. PO SCH ×2 (07:55→20:13)
[2021-01-26] MEDS: LISINOPRIL 5 MG TABLET. PO SCH (07:56)
[2021-01-26] MEDS: ASPIRIN CHEWABLE 81 MG TABLET. PO SCH (07:57)
[2021-01-26] MEDS: FUROSEMIDE 20 MG TABLET PO SCH (07:57)
[2021-01-26] MEDS: MAGNESIUM OXIDE 400 MG TABLET PO SCH ×3 (07:58→20:13)
[2021-01-26] MEDS ORDERED: THIAMINE INJ 100 MG in IV NORMAL SALINE 50ML 50 ML IV SCH (09:00)
[2021-01-26] MEDS ORDERED: IOHEXOL 240 MG/ML 50ML VIAL. ONE (09:35)
[2021-01-26 11:12] VITALS: BP 117/78
--- NOTE | 2021-01-26 11:50 | RAD ---
EXAM: Abdomen and pelvis CT with intravenous contrast. HISTORY: Loss of appetite. Pain. TECHNIQUE: Computed tomographic images of the abdomen and pelvis were obtained with contrast. Multipl roxy reformatting was performed. *One or more of the following individualized dose reduction techniques were utilized for this examina tion: 1. Automated exposure control. 2. Adjustment of the mA and/or kV according to patient size. 3. Use of iterative reconstruction technique. COMPARISON: 03/19/2020. FINDINGS: Evaluation of the lower thorax demonstrate new trace left greater than right pleural effusi ons. The heart is normal in size. There is heavily calcified atherosclerotic plaque involving the cor onary arteries. There is calcification of the mitral valve annulus. There is a small fat-containing p osterior right diaphragmatic hernia. There is bilateral posterior dependent and basilar atelectasis. There is anterior medial right middle lobe pleural parenchymal scarring. There is hepatic steatosis and hepatic surface nodularity due to suspected cirrhosis. No focal hepati c lesion is seen. There is vicarious excretion of contrast into the gallbladder. No pancreatic lesion is seen. The spleen is normal in size. The adrenal glands are unremarkable. There is no hydronephros is. There is a stable 12 mm partially exophytic lesion along the lateral upper mid zone of the right kidney, possibly a cyst. There is no appendicitis. There is mild increased mural fat involving the ascending colon, a finding which can be seen as a sequela of prior inflammation. There is no convincing bowel obstruction. There is heavily calcified atherosclerotic plaque involving the aorta and iliac bifurcation. There is no a neurysm. There is no lymphadenopathy. The bladder is unremarkable. The uterus is absent. There are de generative changes involving the spine. There is diffusely heterogeneous bone density. No pathologic fracture is seen. IMPRESSION: 1. Hepatic steatosis and cirrhosis. 2. Trace left greater than right pleural effusions. 3. Stable suspected cyst within the right kidney. Renal sonography can be performed to confirm benign ity. 4. Heavily calcified atherosclerotic plaque involving the aorta and aortic branch vessels. 5. Stable diffusely heterogeneous bone density. This limits evaluation for small osseous lesions. No pathologic fracture is seen. Electronically signed by: Lisa Freedman MD (01/26/2021 11:47 AM) [id number]
[2021-01-26] MEDS: LACTOBACILLUS RHAMNOSUS GG 1 CAPSULE. PO SCH ×2 (13:28→20:13)
[2021-01-26] MEDS: METOPROLOL SUCC 24HR ER 25 MG TAB.ER.24H. PO SCH ×2 (13:28→20:13)
[2021-01-26] MEDS: hydrOXYzine PAMOATE 25 MG CAPSULE PO SCH (13:29)
[2021-01-26 15:00] VITALS: BP 116/74
[2021-01-26 19:12] VITALS: BP 100/68
--- NOTE | 2021-01-26 21:40 | HP ---
DATE OF SERVICE: 01/26/2021 ADMIT DATE: 01/25/2021 HISTORY OF PRESENT ILLNESS: A 70-year-old female presenting with increased shortness of breath. The patient notes she has had a decreased appetite for the last week, increased shortness of breath with marked dyspnea with minimal exertion. No chest pain however. The patient also notes some nausea and abdominal discomfort. She denies any fever, but does have some chills and nonproductive cough and some breathing problems. The patient was admitted for further evaluation of exacerbation of her asthma and shortness of breath. PAST MEDICAL HISTORY: That of hypertension, colorectal cancer, rectal surgery, obesity, rectal bleeding, hysterectomy, incontinence, depression, anxiety, severe tobacco abuse, and breast cancer. FAMILY HISTORY: Nonremarkable. ALLERGIES: None known. SOCIAL HISTORY: The patient has about a 28-snyo-hsls history of smoking. Also, heavy alcohol use for many years, although none here recently. The patient is a FULL CODE. REVIEW OF SYSTEMS: The patient generally does not feel well. She just kind of aches all over. Has some abdominal discomfort, some bloating in her abdomen as well as shortness of breath with minimal exertion, feels like she has something in her lungs where she just cannot breathe. She denies chest pain per se. Denies any melena, hematochezia, or hematemesis, and neurologically okay. PHYSICAL EXAMINATION: GENERAL: This is a white female, in moderate amount of discomfort, generalized. VITAL SIGNS: Blood pressure 120/80, pulse 102, temperature 98.6. She is at 97% on room air. HEENT: The patient otherwise, head was atraumatic, normocephalic. Eyes, PERRL. No jaundice noted. The mouth and throat show poor dentition. NECK: Supple without JVD or carotid bruits. No thyroidmegaly. LUNGS: Diminished throughout, poor movement of air, some decreased breath sounds on the bases. CARDIOVASCULAR: Regular sinus rhythm. S1, S2, without murmur, rub, thrill, or extra heart sounds. ABDOMEN: Soft, protuberant, diffuse tenderness. Hepatosplenomegaly positive. The patient's bowel sounds positive. No bruits noted. EXTREMITIES: Without clubbing, cyanosis, or edema. Pulses noted distally. However, the patient did have some musculoskeletal atrophy noted to the extremities. LABORATORY DATA: The patient's labs demonstrate a white count of 7, hemoglobin 12 and 37. The MCV was elevated at 110. Sodium and potassium 133 and 3.9, BUN and creatinine 13 and 0.6, GFR stable. The patient's GGTP was elevated at 720, AST of 160, ALT of 149. Albumin of 2.3. Serology: COVID negative. The patient otherwise urine was showing some moderate blood, positive nitrites. ASSESSMENT: Overall assessment therefore of acute exacerbation of chronic obstructive pulmonary disease with bronchitis, pleural effusions, severe protein malnutrition, urinary tract infection, cirrhosis of the liver, history of alcohol abuse, elevated liver enzymes, history of colorectal cancer. PLAN: As above. Continue to monitor the patient, IV antibiotic therapy, breathing treatments and make further assessment on her multiple medical issues as indicated. DAVID DR: Ioana TID: [id number]
[2021-01-26 22:53] VITALS: BP 93/62
[2021-01-27 05:39] VITALS: BP 105/71
[2021-01-27] MEDS: FLUTICASONE 50MCG/NASAL SPRAY 16GM BOTTLE. NS SCH (08:19)
[2021-01-27] MEDS: AZITHROMYCIN 250 MG TABLET. PO SCH (08:19)
[2021-01-27] MEDS: ASPIRIN CHEWABLE 81 MG TABLET. PO SCH (08:19)
[2021-01-27] MEDS: LACTOBACILLUS RHAMNOSUS GG 1 CAPSULE. PO SCH ×2 (08:19→19:59)
[2021-01-27] MEDS: MAGNESIUM OXIDE 400 MG TABLET PO SCH ×3 (08:19→19:58)
[2021-01-27] MEDS: PANTOPRAZOLE 40 MG TABLET. PO SCH (08:19)
[2021-01-27] MEDS: EZETIMIBE 10 MG TABLET PO SCH (08:20)
[2021-01-27] MEDS: APIXABAN 5 MG TABLET. PO SCH ×2 (08:20→19:59)
[2021-01-27] MEDS: ALPRAZolam 0.5 MG TABLET PO SCH ×3 (08:20→19:58)
[2021-01-27] MEDS: THIAMINE 100 MG TABLET. PO SCH (08:20)
[2021-01-27] MEDS: hydrOXYzine PAMOATE 25 MG CAPSULE PO SCH (08:20)
[2021-01-27] MEDS: METOPROLOL SUCC 24HR ER 25 MG TAB.ER.24H. PO SCH ×2 (08:20→19:58)
[2021-01-27] MEDS: FUROSEMIDE 20 MG TABLET PO SCH (08:21)
[2021-01-27] MEDS: LISINOPRIL 5 MG TABLET. PO SCH (08:21)
[2021-01-27] MEDS: POTASSIUM CHLORIDE 20 MEQ TABLET.ER. PO SCH (08:21)
[2021-01-27 10:23] LABS: BASO % 1 % (0-3); EOS # 0.1 x10^3/uL (0.0-0.7); EOS % 1 % (0-3); HEMATOCRIT 36.5 % (36.0-47.0); HEMOGLOBIN 12.3 g/dL (12.0-15.5); LYMPH # 0.6 x10^3/uL (1.0-4.8); LYMPH % 11 % (24-48); MEAN CORPUSCULAR HEMOGLOBIN 36 pg (25-35); MEAN CORPUSCULAR HGB CONC 34 g/dL (31-37); MEAN CORPUSCULAR VOLUME 108 fL (79-100); MONO # 0.6 x10^3/uL (0.0-1.1); MONO % 10 % (0-9); NEUT # 4.4 x10^3uL (1.8-7.7); NEUT % 77 % (31-73); PLATELET COUNT 101 x10^3/uL (140-400); RED BLOOD COUNT 3.39 x10^6/uL (3.50-5.40); RED CELL DISTRIBUTION WIDTH 14.8 % (11.5-14.5); WHITE BLOOD COUNT 5.8 x10^3/uL (4.0-11.0)
[2021-01-27 10:54] VITALS: BP 122/78
[2021-01-27] MEDS ORDERED: CYANOCOBALAMIN (VITAMIN B-12) 1,000 MCG/ML VIAL. IM ONE (11:45)
[2021-01-27 15:09] VITALS: BP 102/71
[2021-01-27] MEDS: IPRATRPIUM/ALBUTEROL 0.5/2.5MG 3 ML NEBU. NEB SCH ×2 (15:14→21:06)
--- NOTE | 2021-01-27 16:56 | NUR ---
RESIDENT SLEEPING AT TIME OF LAST CIWA. PRIOR TO, RESIDENT SCORED HIGH ENOUGH TO RECEIVE A DOSE OF ATIVAN. PT WORKED WITH PT/OT TODAY. PT TRANSFERRED TO THE BATHROOM. PT STILL HAS IMPAIRED GAIT. PT IS UNABLE TO RAISE ARMS ENOUGH TO FEED HERSELF OR TAKE A DRINK. PT EATS DIRECTLY OFF OF HER PLATE WITHOUT USING HER HANDS. PT RECEIVED B12 SHOT TODAY. PHARMACY CONTACTED THIS RN ABOUT D/C ELIQUIS D/T LOW PLATELET COUNT. THIS RN NOTIFIED DR. FALLON.
[2021-01-27 20:28] VITALS: BP 95/66
[2021-01-27 23:14] VITALS: BP 87/64
--- NOTE | 2021-01-28 00:37 | PN ---
SUBJECTIVE: The patient is in with abdominal discomfort and multiple other medical issues. The patient notes that she has been having shortness of breath as well as marked dyspnea with exertion, we got her on breathing treatments. She now complains that she is having hallucinations. She is seeing facies in the trees coming at her. She has a nonproductive cough as well. The patient is on antibiotics as well as additional thiamine since she has had a history of drinking problems. She is on blood thinners, anxiolytics. The patient also will be getting breathing treatments and make further evaluation on those situations as it becomes stabilized. OBJECTIVE: VITAL SIGNS: Blood pressure 122/78, respiratory rate of 20, pulse 94, now low-grade temperature of 99.0 and 97% on room air. LUNGS: Are diminished, some occasional wheezing. CARDIOVASCULAR: Tachycardic but stable. ABDOMEN: Soft and nontender. EXTREMITIES: No clubbing, cyanosis, or edema. NEUROLOGIC: Stable except for her hallucinations. IMPRESSION: Acute respiratory distress, acute exacerbation of chronic obstructive pulmonary disease with acute bronchitis, pleural effusion, severe protein malnutrition, urinary tract infection, cirrhosis of the liver, elevated liver enzymes, history of alcohol abuse, and history of colorectal cancer. PLAN: Continue with present drug regimen. SRINI/EN/PROMISE DR: Ioana TID: [id number]
[2021-01-28] MEDS: IPRATRPIUM/ALBUTEROL 0.5/2.5MG 3 ML NEBU. NEB SCH ×2 (05:37→11:21)
[2021-01-28 05:44] VITALS: BP 104/71
[2021-01-28] MEDS: MAGNESIUM OXIDE 400 MG TABLET PO SCH (08:13)
[2021-01-28] MEDS: FLUTICASONE 50MCG/NASAL SPRAY 16GM BOTTLE. NS SCH (08:13)
[2021-01-28] MEDS: LACTOBACILLUS RHAMNOSUS GG 1 CAPSULE. PO SCH (08:13)
[2021-01-28] MEDS: hydrOXYzine PAMOATE 25 MG CAPSULE PO SCH (08:13)
[2021-01-28] MEDS: AZITHROMYCIN 250 MG TABLET. PO SCH (08:13)
[2021-01-28] MEDS: PANTOPRAZOLE 40 MG TABLET. PO SCH (08:13)
[2021-01-28] MEDS: METOPROLOL SUCC 24HR ER 25 MG TAB.ER.24H. PO SCH (08:13)
[2021-01-28] MEDS: ASPIRIN CHEWABLE 81 MG TABLET. PO SCH (08:13)
[2021-01-28 08:14] VITALS: BP 104/71
[2021-01-28] MEDS: ALPRAZolam 0.5 MG TABLET PO SCH (08:14)
[2021-01-28] MEDS: FUROSEMIDE 20 MG TABLET PO SCH (08:14)
[2021-01-28] MEDS: LISINOPRIL 5 MG TABLET. PO SCH (08:14)
[2021-01-28] MEDS: EZETIMIBE 10 MG TABLET PO SCH (08:15)
[2021-01-28] MEDS: POTASSIUM CHLORIDE 20 MEQ TABLET.ER. PO SCH (08:15)
[2021-01-28] MEDS: THIAMINE 100 MG TABLET. PO SCH (08:15)
--- NOTE | 2021-01-28 08:15 | DISCH ---
DISCHARGE ORDERS DISCHARGE DATE: Jan 28, 2021 FINAL DIAGNOSIS Acute exacerbation of COPD Acute Bronchitis General Muscle Weakness CONDITION AT DISCHARGE: Stable Code Status: Full SNF STAY <30 DAYS: Yes HOSPICE: No HOSPICE EVALUATE & TREAT: No ADMIT TO LTAC: No POST DISCHARGE ORDERS: ACTIVITY ORDERS: No restrictions WEIGHT BEARING STATUS: No restrictions DIET AFTER DISCHARGE: Cardiac CHECKS AFTER DISCHARGE: CHECKS AFTER DISCHARGE: Check blood press - daily DISCHARGE MEDICATIONS: Home Meds Reported Medications Magnesium Oxide (MAGNESIUM) 250 Mg Tablet, 250 MG PO TID for supplement, TAB 09/19/20 [folic acid] No Conflict Check 09/19/20 Thiamine Hcl (VITAMIN B-1) 100 Mg Tablet, 100 MG PO DAILY for supplement, TAB 09/19/20 Aspirin (ASPIRIN) 81 Mg Tab.chew, 81 MG PO DAILY for prophylaxis, TAB 09/19/20 Furosemide (LASIX) 20 Mg Tablet, 20 MG PO DAILY for edema, TAB 09/19/20 Metoprolol Succinate (METOPROLOL SUCCINATE ( XL )) 25 Mg Tab.er.24h, 25 MG PO BID for FOR HYPERTENSION, #30 TAB 0 Refills 09/19/20 Lisinopril (LISINOPRIL) 2.5 Mg Tablet, 2.5 MG PO DAILY for FOR HYPERTENSION, #30 TAB 0 Refills 09/19/20 Ezetimibe (ZETIA) 10 Mg Tablet, 1 TAB PO DAILY for unknown for 30 Days, #30 TAB 0 Refills 04/11/19 Hydroxyzine Pamoate (HYDROXYZINE PAMOATE) 25 Mg Capsule, 1 CAP PO DAILY for un known, #60 CAP 2 Refills 04/11/19 Potassium Chloride (POTASSIUM CHLORIDE ) 20 Meq Tablet.er, 20 MEQ PO DAILY for SUPPLEMENT, TAB 04/11/19 Fluticasone Propionate (Flonase Allergy Relief) 9.9 Ml [place].susp, 2 SPRAYS NS DAILY for unknown, BOTTLE 04/11/19 Hydrochlorothiazide (HYDROCHLOROTHIAZIDE TABLET ) 25 Mg Tablet, 25 MG PO DAILY for DIURETIC, TAB 0 Refills 04/11/19 Apixaban (ELIQUIS) 5 Mg Tablet, 5 MG PO BID for unknown, TAB 04/11/19 Pantoprazole Sodium (PROTONIX) 40 Mg Tablet.dr, 1 TAB PO DAILY for unknown, #30 TAB 5 Refills 04/11/19 Alprazolam (XANAX) 0.5 Mg Tablet, 1 TAB PO TID, #90 TAB 06/19/15 GINA FALLON MD Jan 28, 2021 08:15
[2021-01-28] MEDS: APIXABAN 5 MG TABLET. PO SCH (08:16)
[2021-01-28] MEDS ORDERED: IPRA3AMP29 NEB (08:24)
[2021-01-28] MEDS ORDERED: DOXY100C3 PO (08:24)
[2021-01-28] MEDS ORDERED: AZIT250T6 PO (08:24)
--- NOTE | 2021-01-28 12:11 | NUR ---
REPORT CALLED TO [facility]. THIS RN SPOKE WITH
--- NOTE | 2021-01-28 13:50 | NUR ---
PT PICKED UP BY [employer]OD[employer] STAFF. DISCHARGE PAPERWORK GIVEN TO COMPUTER PROGRAMMING MANAGER. PT WHEELED TO THE FRONT BY STAFF. PT LEFT WITH HER BELONGINGS.
--- NOTE | 2021-01-28 21:54 | PDOC ---
Exam Note: Joni Note: Late entry for 01/27/2021. Please also refer to the separate dictated note~for this date of service dictated separately.~Patient seen individually. Discussed the patient with Nursing staff reviewed the chart.~Reviewed interim history and current functioning. Reviewed vital signs,~Labs/ Radiology~and current medic ations noted below. Continue current treatment with the changes noted in the dictated addendum note Assessment: Vital Signs/I&O: Vital Signs Date Time Temp Pulse Resp B/P (MAP) Pulse Ox O2 Delivery O2 Flow Rate FiO2 01/28/21 11:21 97 Room Air 01/28/21 08:14 90 104/71 01/28/21 05:44 18 01/27/21 20:28 98.3 I & O 01/27/21 01/27/21 01/28/21 15:00 23:00 07:00 Intake Total 360 ml 240 ml 50 ml Balance 360 ml 240 ml 50 ml Current Medications: Meds: Current Medications Medications (Trade) Dose Ordered Sig/Cas Route PRN Reason Start Time Stop Time Status Last Admin Dose Admin Sodium Chloride 1,000 ml @ 1,000 mls/hr 1X ONCE IV 01/25/21 13:00 01/25/21 13:59 DC 01/25/21 13:00 Aspirin (Aspirin Chewable) 162 mg 1X ONCE PO 01/25/21 13:00 01/25/21 13:03 DC Lorazepam (Ativan Inj) 1 mg 1X ONCE IVP 01/25/21 15:30 01/25/21 15:31 Cancel Acetaminophen (Tylenol) 650 mg PRN Q4HRS PRN PO FEVER > 100.3'F 01/25/21 15:30 01/26/21 15:29 DC Nitroglycerin (Nitrostat) 0.4 mg PRN Q5MIN PRN SL CHEST PAIN 01/25/21 15:30 01/26/21 15:29 DC Thiamine HCl 100 mg/Sodium Chloride 51 ml @ 102 mls/hr DAILY IV 01/26/21 09:00 Cancel Folic Acid (Folic Acid) 1 mg 1X ONCE PO 01/25/21 15:30 01/25/21 15:31 DC Lorazepam (Ativan Inj) 2 mg PRN Q1HR PRN IV For CIWA 8-14 01/25/21 15:30 01/28/21 13:51 DC 01/27/21 23:20 Lorazepam (Ativan Inj) 4 mg PRN Q1HR PRN IV For CIWA 15 or greater 01/25/21 15:30 01/28/21 13:51 DC Ceftriaxone Sodium 2 gm/ Sodium Chloride 100 ml @ 200 mls/hr 1X ONCE IV 01/25/21 17:00 01/25/21 17:29 DC 01/25/21 17:00 Ceftriaxone Sodium (Rocephin) 2 gm STK-MED ONCE IV 01/25/21 17:07 01/25/21 17:08 DC Sodium Chloride 100 ml @ As Directed STK-MED ONCE .ROUTE 01/25/21 17:07 01/25/21 17:08 DC Alprazolam (Xanax) 0.5 mg TID PO 01/25/21 21:00 01/28/21 13:51 DC 01/28/21 08:14 Apixaban (Eliquis) 5 mg BID PO 01/25/21 21:00 01/28/21 13:51 DC 01/27/21 08:20 Aspirin (Aspirin Chewable) 81 mg DAILY PO 01/26/21 09:00 01/28/21 13:51 DC 01/28/21 08:13 EZETIMIBE (Zetia) 10 mg DAILY PO 01/26/21 09:00 01/28/21 13:51 DC 01/28/21 08:15 Furosemide (Lasix) 20 mg DAILY PO 01/26/21 09:00 01/28/21 13:51 DC 01/28/21 08:14 Hydroxyzine Pamoate (Vistaril) 25 mg DAILY PO 01/26/21 09:00 01/28/21 13:51 DC 01/28/21 08:13 Lisinopril (Prinivil) 2.5 mg DAILY PO 01/26/21 09:00 01/28/21 13:51 DC 01/28/21 08:14 Metoprolol Succinate (Toprol Xl) 25 mg BID PO 01/25/21 21:00 01/28/21 13:51 DC 01/28/21 08:13 Pantoprazole Sodium (Protonix) 40 mg DAILY PO 01/26/21 09:00 01/28/21 13:51 DC 01/28/21 08:13 Potassium Chloride (Klor-Con) 20 meq DAILY PO 01/26/21 09:00 01/28/21 13:51 DC 01/28/21 08:15 Fluticasone Propionate (Flonase) 2 spray DAILY NS 01/26/21 09:00 01/28/21 13:51 DC 01/28/21 08:13 Magnesium Oxide (Magnesium Oxide) 400 mg TID PO 01/25/21 21:00 01/28/21 13:51 DC 01/28/21 08:13 Thiamine HCl (Vitamin B-1) 100 mg DAILY PO 01/26/21 09:00 01/28/21 13:51 DC 01/28/21 08:15 Ceftriaxone Sodium 1 gm/ Sodium Chloride 50 ml @ 100 mls/hr Q24H IV 01/26/21 17:00 01/28/21 13:51 DC 01/27/21 16:28 Azithromycin (Zithromax) 500 mg 1X ONCE PO 01/25/21 18:45 01/25/21 18:49 DC 01/25/21 20:21 Azithromycin (Zithromax) 250 mg DAILY PO 01/26/21 09:00 01/28/21 13:51 DC 01/28/21 08:13 Folic Acid (Folic Acid) 1 mg 1X ONCE PO 01/25/21 20:15 01/25/21 20:16 DC 01/25/21 20:21 Lactobacillus Rhamnosus (Culturelle) 1 cap BID PO 01/26/21 09:00 01/28/21 13:51 DC 01/28/21 08:13 Iohexol (Omnipaque 240 Mg/ml) 50 ml STK-MED ONCE .ROUTE 01/26/21 09:35 01/26/21 09:36 DC Cyanocobalamin (Vitamin B-12) 1,000 mcg 1X ONCE IM 01/27/21 11:45 01/27/21 11:46 DC 01/27/21 12:03 Albuterol/ Ipratropium (Duoneb) 3 ml TID NEB 01/27/21 14:00 01/28/21 13:51 DC 01/28/21 11:21 I have reviewed the current psychotropics carefully including drug interactions. Risk benefit ratio favors no change other than as noted in my dictated progress note. VIJAY GUARDADO MD Jan 28, 2021 21:53
--- NOTE | 2021-01-29 02:16 | CONS ---
DATE OF CONSULTATION: 01/28/2021 PSYCHIATRIC CONSULTATION IDENTIFYING DATA: The patient is a 70-year-old female seen in bed 117, [facility] for a psychiatric consult requested by Dr. De Los Santos on account of the patient's significant alcohol abuse dependence and current alcohol withdrawal with questionable delirium tremens and/or visual hallucinations. The patient is currently on the detox protocol. CHIEF COMPLAINT: "I live by myself. I have been drinking excessively." HISTORY OF PRESENT ILLNESS: The patient presented with shortness of breath poor appetite, nausea, abdominal discomfort. She has been using hard liquor perhaps fifth or more a day. Lives by herself. Reportedly, she has been driving as well, but states she would not drink before driving. No psychotic symptoms, suicidal or homicidal ideation. PAST PSYCHIATRIC HISTORY: As above. MEDICAL HISTORY: Hypertension, history of colorectal cancer, rectal surgery, obesity, rectal bleeding, hysterectomy, incontinence, severe tobacco abuse, history of breast cancer. ALLERGIES: Negative. FAMILY HISTORY: Noncontributory. SOCIAL HISTORY: 40 pack per year history of smoking. MENTAL STATUS EXAM: The patient was seen individually. She is oriented to herself, situation. Speech is somewhat slurred, somewhat distractible. Short-term memory has some impairment. Denies any active hallucination, suicidal or homicidal ideation. Part of her records indicated that she has not had alcohol recently, but this is unclear. From her description as noted above. IMPRESSION: 1. History of alcohol dependence, withdrawal. 2. History of major depressive disorder versus adjustment disorder with depressed mood and anxiety. 3. Rest as above. RECOMMENDATIONS: From a psychiatric standpoint, keep her on the detox protocol and monitor her for mood symptoms. if these are evident, may consider adding SSRIs. Dr. De Los Snatos, thank you for the opportunity to participate in your patient's care, we will follow with you. SYLVESTER MELÉNDEZ: Zulema TID: [id number]
--- NOTE | 2021-02-05 16:01 | DS ---
DATE OF DISCHARGE: 01/28/2021 HOSPITAL COURSE: A 70-year-old female presented with increased shortness of breath. The patient noted that she had decreased appetite for the last week and increased shortness of breath. The patient was found to be having previous history of COVID-19. The patient was with acute exacerbation of her emphysema, COPD with bronchitis, pleural effusion, severe protein malnutrition, history of cirrhosis of the liver, history of alcohol abuse. Although, there was none here at this admission. The patient was admitted and placed on aggressive pulmonary toilet. Urinary tract infection was found. She also had a history of colorectal cancer. The patient made good progress during the rest of her hospitalization. The patient's labs, hemoglobin 12 and hematocrit 36. Chemistry, sodium 133, potassium 3.9. BUN and creatinine 13 and 0.6. Total bilirubin 2.2. She had elevated liver enzymes. GGTP is 720, AST of 164, ALT of 149. Albumin 2.3. The patient's urine showed ketones, nitrites. Serology at this time was not detected for COVID-19. The patient made excellent progress. She was also seen by Dr. Lincoln for further psychiatric evaluation. CT scan of the abdomen and pelvis showed hepatic steatosis and cirrhosis, cyst of the right kidney, heavy calcified atherosclerosis noted of the aortic system. The patient was discharged home to be on a heart healthy diet. FINAL DIAGNOSES: Acute respiratory distress, acute exacerbation of chronic obstructive pulmonary disease with acute bronchitis, pleural effusion, severe protein malnutrition, urinary tract infection, cirrhosis of the liver, elevated liver enzymes, history of alcohol abuse and history of colorectal cancer. The patient was discharged home. JARED/DEANA DR: Ioana TID: [id number]
== END 2021-01-28 13:51 | DRG 190 ==
LOC: ER 12:47 → 1 SOUTH 15:22
PROVIDERS: ADMIT Family Medicine; ATTEND Family Medicine
DX: J43.9 Emphysema, unspecified (principal); E43 Unspecified severe protein-calorie malnutrition; G93.41 Metabolic encephalopathy; N39.0 Urinary tract infection, site not specified; J45.901 Unspecified asthma with (acute) exacerbation; J90 Pleural effusion, not elsewhere classified; F10.239 Alcohol dependence with withdrawal, unspecified; F10.20 Alcohol dependence, uncomplicated; I10 Essential (primary) hypertension; I48.91 Unspecified atrial fibrillation; J20.9 Acute bronchitis, unspecified; K74.60 Unspecified cirrhosis of liver; Z20.822 Contact with and (suspected) exposure to COVID-19; Z85.048 Personal history of other malignant neoplasm of rectum, rectosigmoid junction, and anus; Z85.3 Personal history of malignant neoplasm of breast; Z87.891 Personal history of nicotine dependence; Z90.710 Acquired absence of both cervix and uterus; E66.9 Obesity, unspecified; N28.1 Cyst of kidney, acquired; Z68.29 Body mass index [BMI] 29.0-29.9, adult; F32.A Depression, unspecified; F41.9 Anxiety disorder, unspecified; R74.8 Abnormal levels of other serum enzymes; R06.03 Acute respiratory distress; Z86.16 Personal history of COVID-19; K76.0 Fatty (change of) liver, not elsewhere classified
CPT/HCPCS: 36415; 71045; 74176; 80053; 80307; 81001; 82140; 82977; 83605; 83880; 84484; 85025; 87086; 93005; 94640; 96361; 96365; G0480; J0696; J2060; J3420; Q0177; U0003; 97530; 97535; 99285-25; J7030

== ENCOUNTER → 2021-04-06 | Outpatient (CLI) | payer BC ==
[~2021-04-06] MED LIST changes: +AZIT250T6 PO; +DOXY100C3 PO; +IPRA3AMP29 NEB
[2021-04-06 14:33] LABS: BASO % 0 % (0-3); EOS # 0.2 x10^3/uL (0.0-0.7); EOS % 2 % (0-3); HEMATOCRIT 40.5 % (36.0-47.0); HEMOGLOBIN 13.5 g/dL (12.0-15.5); LYMPH # 1.3 x10^3/uL (1.0-4.8); LYMPH % 16 % (24-48); MEAN CORPUSCULAR HEMOGLOBIN 32 pg (25-35); MEAN CORPUSCULAR HGB CONC 33 g/dL (31-37); MEAN CORPUSCULAR VOLUME 98 fL (79-100); MONO # 0.7 x10^3/uL (0.0-1.1); MONO % 8 % (0-9); NEUT % 74 % (31-73); PLATELET COUNT 163 x10^3/uL (140-400); RED BLOOD COUNT 4.15 x10^6/uL (3.50-5.40); RED CELL DISTRIBUTION WIDTH 13.8 % (11.5-14.5); WHITE BLOOD COUNT 8.2 x10^3/uL (4.0-11.0)
[2021-04-06 15:01] LABS: ALBUMIN 3.1 g/dL (3.4-5.0); ALBUMIN/GLOBULIN RATIO 0.8 (1.0-1.7); CALCIUM 8.9 mg/dL (8.5-10.1); CREATININE 0.9 mg/dL (0.6-1.0); GFR 62.1; POTASSIUM 4.1 mmol/L (3.5-5.1); TOTAL BILIRUBIN 0.5 mg/dL (0.2-1.0); TOTAL PROTEIN 6.8 g/dL (6.4-8.2)
== END ==
LOC: LAB 13:42
PROVIDERS: ATTEND Family Medicine
DX: I10 Essential (primary) hypertension (principal); E78.2 Mixed hyperlipidemia
CPT/HCPCS: 36415; 80053; 80061; 85025